=== PATIENT | female | born 1955 | race Caucasian/White ===

== ENCOUNTER 2021-11-23 22:59 | Emergency (ER) | payer MEDICARE ==
[~2021-11-23] VITALS: Ht 172.7 cm; Wt 68.0 kg
[2021-11-23 23:37] LABS: BASOPHILS ABSOLUTE AUTO 0.09 K/mm3 (0.00-0.23); BASOPHILS PERCENT AUTO 1 % (0-2); EOSINOPHILS ABSOLUTE AUTO 0.32 K/mm3 (0.00-0.68); EOSINOPHILS PERCENT AUTO 4 % (0-6); Hemoglobin 13.2 g/dL (11.5-16.0); IMMATURE GRAN ABSOLUTE AUTO 0.02 K/mm3 (0.00-0.10); IMMATURE GRAN PERCENT AUTO 0 % (0-1); LYMPHOCYTES ABSOLUTE AUTO 2.26 K/mm3 (0.84-5.20); LYMPHOCYTES PERCENT AUTO 26 % (21-46); MONOCYTES ABSOLUTE AUTO 1.24 K/mm3 (0.16-1.47); MONOCYTES PERCENT AUTO 14 % (4-13); Mean Corpuscular HGB 28.1 pg (26.0-34.0); Mean Corpuscular Volume 85 fL (80-100); Mean Platelet Volume 10.5 fL (9.1-12.4); NEUTROPHILS ABSOLUTE AUTO 4.86 K/mm3 (1.96-9.15); NEUTROPHILS PERCENT AUTO 55 % (41-73); Platelet Count 188 K/mm3 (150-400); RDW Coefficient Variation 13.3 % (11.7-14.2); Red Blood Cell Count 4.69 M/mm3 (3.80-5.20); White Blood Cell Count 8.79 K/mm3 (4.00-11.30)
[2021-11-23 23:52] LABS: International Normalized Ratio 0.97; Prothrombin Time Results 10.2 Sec (9.7-11.5)
[2021-11-23] MEDS ORDERED: ROSUVASTATIN CA10 MG PO (23:54)
[2021-11-23] MEDS ORDERED: FUROSEMIDE20 MG PO (23:54)
[2021-11-23] MEDS ORDERED: CARVEDILOL12.5 MG PO (23:54)
[2021-11-23] MEDS ORDERED: METHIMAZOLE PO (23:54)
[2021-11-23] MEDS ORDERED: MELO7.5 PO (23:55)
[2021-11-23] MEDS ORDERED: FAMO20 PO (23:55)
[2021-11-23] MEDS ORDERED: LOW DOSE ASPIRI81 M1 PO (23:56)
[2021-11-23 23:57] LABS: Alanine Aminotransfer (ALT/SGP 30 U/L (12-78); Albumin, Blood 3.6 g/dL (3.4-5.0); Albumin/Globulin Ratio 0.9 (0.8-1.8); Alk Phos 92 U/L (50-136); Anion Gap 7 mmol/L (6-16); Aspartate Aminotrans (AST/SGOT 26 U/L (12-37); Bilirubin, Total 0.4 mg/dL (0.1-1.0); Blood Urea Nitrogen 31 mg/dL (8-24); Bun/Creatinine Ratio 20.4 (12.0-20.0); CO2, Blood 27 mmol/L (21-32); Calcium, Blood 8.9 mg/dL (8.5-10.1); Chloride, Blood 109 mmol/L (98-108); Creatinine, Blood 1.52 mg/dL (0.40-1.00); Globulin, Blood 3.8 g/dL (2.2-4.0); Glomerular Filtration Rate 34 (60-); Glucose, Blood 106 mg/dL (70-99); Potassium, Blood 3.6 mmol/L (3.5-5.5); Sodium, Blood 143 mmol/L (136-145); Total Protein, Blood 7.4 g/dL (6.4-8.2); Troponin I <0.015 ng/mL (0.000-0.040)
== END 2021-11-24 02:37 | disposition home or self-care (01) ==
LOC: ER 22:59
PROVIDERS: Emergency Medicine
DX: I73.9 Peripheral vascular disease, unspecified (principal); Z88.8 Allergy status to other drugs, medicaments and biological substances; Z88.1 Allergy status to other antibiotic agents; Z79.899 Other long term (current) drug therapy; Z79.82 Long term (current) use of aspirin
CPT/HCPCS: 70450; 70496; 70498; 80053; 84484; 85025; 85610; 85730; 93005; 93010; 93931; A9270; J2405; Q9967

== ENCOUNTER 2023-04-16 06:09 | Day surgery (SDC) | payer BC ==
[~2023-04-16] VITALS: Ht 172.7 cm; Wt 71.2 kg
[2023-04-16] VITALS (7 sets, daily range): BP systolic 104–140; BP diastolic 60–86
[~2023-04-16 06:09] MED LIST: ALEN70 PO; Amlodipine Bes2.5 MG PO; CARVEDILOL12.5 MG PO; ELIQUIS5 M2 PO; FAMO20 PO; FUROSEMIDE20 MG PO; LOW DOSE ASPIRI81 M1 PO; MELO7.5 PO; METHIMAZOLE PO; OMEP20ER PO; ROSUVASTATIN CA10 MG PO; ZOLP5 PO
--- NOTE | 2023-04-16 10:08 | NUR ---
DISCHARGE REVIEWED WITH BOTH PT AND WITH , BOTH VERBALIZE UNDERSTANDING OF INSTRUCTIONS. ALL AIR HAS BEEN REMOVED FROM TR BAND. SITE WITHOUT BLEEDING OR HEMATOMA. PT AND HAVE NO FURTHER QUESTIONS AT THIS TIME.
--- NOTE | 2023-04-16 10:26 | NUR ---
R WRIST TR BAND REMOVED. PUNCTURE AREA CLEANED /C NS AND CLOTH DOT DRSG PLACED. R WRIST SPLINT REAPPLIED. IV REMOVED. PT AND VERBALIZED UNDERSTANDING OF WRITTEN AND VERBAL D/C INST.
== END 2023-04-16 11:00 | disposition home or self-care (01) ==
LOC: MHTC 06:09
DX: I51.89 Other ill-defined heart diseases (principal); I25.10 Atherosclerotic heart disease of native coronary artery without angina pectoris; I48.0 Paroxysmal atrial fibrillation; I12.9 Hypertensive chronic kidney disease with stage 1 through stage 4 chronic kidney disease, or unspecified chronic kidney disease; N18.9 Chronic kidney disease, unspecified; Z88.1 Allergy status to other antibiotic agents; Z88.8 Allergy status to other drugs, medicaments and biological substances
CPT/HCPCS: 76937; 93312; 93325; 93454; 99152; 99153; A9270; C1769; C1887; C1894; J1644; J2250; J3010; J7030; J7050; Q9967

== ENCOUNTER → 2023-10-21 | Outpatient (CLI) | payer MEDICARE | END | disposition home or self-care (01) | LOC: PLD 08:11 → LAB SHORT 08:11 | DX: L82.1 Other seborrheic keratosis (principal) | CPT/HCPCS: 88305 ==

== ENCOUNTER 2024-03-10 15:04 | Inpatient (IN) | payer OTHER, BC ==
[~2024-03-10] VITALS: Ht 172.7 cm; Wt 72.4 kg
[2024-03-10 15:48] LABS: BASOPHILS ABSOLUTE AUTO 0.08 K/mm3 (0.00-0.23); BASOPHILS PERCENT AUTO 0 % (0-2); EOSINOPHILS ABSOLUTE AUTO 0.49 K/mm3 (0.00-0.68); EOSINOPHILS PERCENT AUTO 2 % (0-6); Hematocrit 34.2 % (33.0-51.0); Hemoglobin 11.7 g/dL (11.5-16.0); IMMATURE GRAN ABSOLUTE AUTO 0.26 K/mm3 (0.00-0.10); IMMATURE GRAN PERCENT AUTO 1 % (0-1); LYMPHOCYTES ABSOLUTE AUTO 0.35 K/mm3 (0.84-5.20); LYMPHOCYTES PERCENT AUTO 2 % (21-46); MONOCYTES PERCENT AUTO 6 % (4-13); Mean Corpuscular HGB 31.1 pg (26.0-34.0); Mean Corpuscular HGB Conc 34.2 g/dL (31.5-36.5); Mean Corpuscular Volume 91 fL (80-100); Mean Platelet Volume 10.5 fL (9.1-12.4); NEUTROPHILS ABSOLUTE AUTO 18.23 K/mm3 (1.96-9.15); NEUTROPHILS PERCENT AUTO 88 % (41-73); Platelet Count 157 K/mm3 (150-400); Red Blood Cell Count 3.76 M/mm3 (3.80-5.20); White Blood Cell Count 20.71 K/mm3 (4.00-11.30)
[2024-03-10] MEDS ORDERED: NS 1,000 ML IV SCH ×3 (16:10→21:00)
[2024-03-10] MEDS ORDERED: Ondansetron HCl 2 MG / ML 2ML Vial IV PRN (19:35)
[2024-03-10] MEDS ORDERED: Acetaminophen 325 MG TABLET PO PRN (19:35)
[2024-03-10] MEDS ORDERED: Zolpidem Tartrate 5 MG Tab PO PRN (19:40)
[2024-03-10] MEDS ORDERED: OxyCODONE HCL 5 MG TAB PO PRN (19:40)
[2024-03-10] MEDS ORDERED: NS 1,000 ML IV ONE (20:00)
[2024-03-10] MEDS ORDERED: MethylPREDNISolone Sod Succ 125 MG Vial IV ONE (20:00)
[2024-03-10] MEDS ORDERED: DiphenhydrAMINE HCl 50 MG/ML 1ML Vial IV ONE (20:00)
[2024-03-10] MEDS ORDERED: Meropenem 500 MG in NS 100 ML IV SCH (21:00)
[2024-03-10] MEDS ORDERED: Loratadine 10 MG Tab PO SCH (21:00)
[2024-03-10] MEDS ORDERED: Famotidine 20 MG Tab PO SCH (21:00)
[2024-03-10] MEDS ORDERED: CefTRIAXone Sodium 1,000 MG in NS 100 ML IV SCH (21:00)
[2024-03-10] MEDS ORDERED: Apixaban 5 MG Tab PO SCH (21:00)
[2024-03-10] MEDS ORDERED: MetroNIDAZOLE 500 MG Tab PO SCH (21:00)
[2024-03-10 23:04] VITALS: BP 105/56
[2024-03-11 04:30] VITALS: BP 109/59
[2024-03-11 04:58] LABS: BASOPHILS ABSOLUTE AUTO 0.06 K/mm3 (0.00-0.23); BASOPHILS PERCENT AUTO 0 % (0-2); EOSINOPHILS ABSOLUTE AUTO 0.04 K/mm3 (0.00-0.68); EOSINOPHILS PERCENT AUTO 0 % (0-6); Hematocrit 31.7 % (33.0-51.0); Hemoglobin 10.5 g/dL (11.5-16.0); IMMATURE GRAN ABSOLUTE AUTO 0.08 K/mm3 (0.00-0.10); IMMATURE GRAN PERCENT AUTO 1 % (0-1); LYMPHOCYTES ABSOLUTE AUTO 0.41 K/mm3 (0.84-5.20); LYMPHOCYTES PERCENT AUTO 3 % (21-46); MONOCYTES ABSOLUTE AUTO 0.48 K/mm3 (0.16-1.47); MONOCYTES PERCENT AUTO 3 % (4-13); Mean Corpuscular HGB 29.9 pg (26.0-34.0); Mean Corpuscular HGB Conc 33.1 g/dL (31.5-36.5); Mean Corpuscular Volume 90 fL (80-100); Mean Platelet Volume 10.1 fL (9.1-12.4); NEUTROPHILS ABSOLUTE AUTO 14.67 K/mm3 (1.96-9.15); NEUTROPHILS PERCENT AUTO 93 % (41-73); Platelet Count 146 K/mm3 (150-400); RDW Coefficient Variation 14.2 % (11.7-14.2); RDW Standard Deviation 47.3 fL (35.1-46.3); Red Blood Cell Count 3.51 M/mm3 (3.80-5.20); White Blood Cell Count 15.74 K/mm3 (4.00-11.30)
[2024-03-11 05:02] LABS: Source, Urine Clean Catch
[2024-03-11 05:12] LABS: Appearance, Urine Hazy (Clear); Bilirubin, Urine Neg (Neg); Blood, Urine 2+ (Neg); Color, Urine Yellow (P-Yellow); Glucose Qualitative, Urine Neg (Neg); Ketones, Urine Neg (Neg); Leukocyte Esterase, Urine 3+ (Neg); Nitrite, Urine Pos (Neg); Protein, Urine 2+ (Neg); Urobilinogen, Urine NORM (Normal)
[2024-03-11 05:18] LABS: Bun/Creatinine Ratio 22.1 (12.0-20.0); Calcium, Blood 7.6 mg/dL (8.5-10.1); Creatinine, Blood 1.45 mg/dL (0.40-1.00); Potassium, Blood 4.3 mmol/L (3.5-5.5)
[2024-03-11 05:29] LABS: White Blood Cells, Urine 25-50 /hpf (0-5)
[2024-03-11 05:30] LABS: Bacteria Mod /hpf; Squamous Epithelial Cells Few /hpf (Few)
[2024-03-11] MEDS ORDERED: Omeprazole 20 MG CapCR PO SCH (06:00)
--- NOTE | 2024-03-11 06:06 | NUR ---
2109 Pt arrived onto unit via rashmi with RN in attendance. Ambulated from hallway to bed in room 5, [facility]. is here with pt, staying long enough for her to get settled for the night. Full assessment obtained, wounds photographed, and placed in chart. Shift plan of care reviewed with pt and , all questions answered. Oriented to room and unit per unit standards. Pt reports slept well this shift and "feels so much better". Reddened/petechial rash lessened and face visibly less puffy. Pt has repeatedly denied pain this shift, able to ambulate to BR to void. Please see full asssessment for additional details. No further complaints or concerns at this time, will continue to monitor.
[2024-03-11 08:41] VITALS: BP 110/54
[2024-03-11] MEDS ORDERED: PredniSONE 20 MG Tab PO SCH (09:00)
[2024-03-11 15:34] VITALS: BP 113/70
--- NOTE | 2024-03-11 16:11 | NUR ---
RASH SEEMS TO HAVE IMPROVED T/O THIS SHIFT, THERE IS LESS EDEMA, LESS ERYTHEMA NOTED TO UPPER ARMS BILATERALLY. SKIN IS DRY AND INTACT. PT IS ALERT AND ORIENTED X4. SHE IS INDEPENDANT IN THE ROOM. NO RESPIRATORY DISTRESS, EVEN NONLABORED RESPIRATIONS NOTED. DENIES ANY CHEST PAIN. SHE IS IN A PACED RHYTHM IN THE 70s PER TELE. VSS. SHE HAS GOOD APPETITE. SHE IS LAUGHING AND JOKING WITH STAFF. FAMILY HAS BEEN IN TO VISIT AND WAS ALSO UPDATED BY THIS RN AND DR DOMINGUEZ, DR DOMINGUEZ HAS BEEN IN A FEW TIMES TO REASSESS RASH.
[2024-03-11 19:17] VITALS: BP 130/74
[2024-03-11] MEDS ORDERED: Carvedilol 6.25 MG Tab PO SCH (21:00)
[2024-03-11 23:23] VITALS: BP 141/88
[2024-03-12 03:19] VITALS: BP 116/72
[2024-03-12 03:43] LABS: BASOPHILS ABSOLUTE AUTO 0.05 K/mm3 (0.00-0.23); BASOPHILS PERCENT AUTO 0 % (0-2); EOSINOPHILS ABSOLUTE AUTO 0.12 K/mm3 (0.00-0.68); EOSINOPHILS PERCENT AUTO 1 % (0-6); Hematocrit 29.3 % (33.0-51.0); Hemoglobin 9.6 g/dL (11.5-16.0); IMMATURE GRAN ABSOLUTE AUTO 0.16 K/mm3 (0.00-0.10); IMMATURE GRAN PERCENT AUTO 1 % (0-1); LYMPHOCYTES PERCENT AUTO 6 % (21-46); MONOCYTES ABSOLUTE AUTO 1.46 K/mm3 (0.16-1.47); MONOCYTES PERCENT AUTO 11 % (4-13); Mean Corpuscular HGB Conc 32.8 g/dL (31.5-36.5); Mean Corpuscular Volume 92 fL (80-100); NEUTROPHILS ABSOLUTE AUTO 11.33 K/mm3 (1.96-9.15); NEUTROPHILS PERCENT AUTO 81 % (41-73); Platelet Count 127 K/mm3 (150-400); RDW Coefficient Variation 14.5 % (11.7-14.2); RDW Standard Deviation 49.1 fL (35.1-46.3); White Blood Cell Count 13.92 K/mm3 (4.00-11.30)
[2024-03-12 04:03] LABS: Albumin, Blood 2.4 g/dL (3.4-5.0); Anion Gap 9 mmol/L (3-11); Blood Urea Nitrogen 32 mg/dL (8-24); CO2, Blood 20 mmol/L (21-32); Calcium, Blood 7.3 mg/dL (8.5-10.1); Chloride, Blood 116 mmol/L (98-108); Creatinine, Blood 1.23 mg/dL (0.40-1.00); Glomerular Filtration Rate 47 (60-); Glucose, Blood 128 mg/dL (70-99); Magnesium, Blood 1.7 mg/dL (1.6-2.4); Phosphorus, Blood 2.4 mg/dL (2.5-4.9); Potassium, Blood 4.2 mmol/L (3.5-5.5); Sodium, Blood 141 mmol/L (136-145)
--- NOTE | 2024-03-12 05:32 | NUR ---
1915 Assumed care of pt, bedside report completed. Shift plan of care reviewed with pt and , all questions answered. Pt appears to have slept well this shift, VSS and repeatedly denies pain. Pt has reported feeling better and pleased with the progress of her diminishing rash especially the decreased presence in face and decreased pain/prickling feeling over body from rash. Please see full assessment for additional details. No further complaints or concerns at this time, will continue to moniotor.
[2024-03-12 07:10] VITALS: BP 139/81
[2024-03-12] MEDS ORDERED: Potassium Phos/Sodium Phos 250 MG PACK PO ONE (07:25)
[2024-03-12] MEDS ORDERED: Magnesium Oxide 400 MG Tab PO ONE (08:00)
[2024-03-12] MEDS ORDERED: Trimethoprim/Sulfamethoxazole DS Tab PO SCH (08:00)
[2024-03-12] MEDS ORDERED: MetroNIDAZOLE 500 MG Tab PO SCH (08:00)
[2024-03-12] MEDS ORDERED: Aspirin 81 MG TabEC PO SCH (09:00)
[2024-03-12] MEDS ORDERED: Furosemide 20 MG Tab PO SCH (09:00)
[2024-03-12] MEDS ORDERED: ELIQUIS5 M2 PO (12:47)
[2024-03-12] MEDS ORDERED: FAMO20 PO (12:48)
[2024-03-12] MEDS ORDERED: LORA10ER PO (12:48)
[2024-03-12] MEDS ORDERED: METR500 PO (12:49)
[2024-03-12] MEDS ORDERED: PRED20 PO (12:50)
[2024-03-12] MEDS ORDERED: SULTRIDS PO (12:51)
--- NOTE | 2024-03-12 13:10 | NUR ---
DISCHARGE DISCHARGE INSTRUCTIONS PROVIDED TO THE PATIENT. PATIENT EDUCATED ON MEDICATIONS. ALL QUESTIONS ANSWERED. PT TAKEN OUT VIA WC
== END 2024-03-12 13:12 | disposition home or self-care (01) | DRG 872 ==
LOC: ER 15:04 → PCU 19:34
PROVIDERS: Family Medicine; Nurse Practitioner Acute Care; Student in an Organized Health Care Education/Training Program; ADMIT Internal Medicine
DX: A41.9 Sepsis, unspecified organism (principal); C92.00 Acute myeloblastic leukemia, not having achieved remission; Z94.81 Bone marrow transplant status; E87.20 Acidosis, unspecified; N17.9 Acute kidney failure, unspecified; I13.0 Hypertensive heart and chronic kidney disease with heart failure and stage 1 through stage 4 chronic kidney disease, or unspecified chronic kidney disease; I50.32 Chronic diastolic (congestive) heart failure; R65.20 Severe sepsis without septic shock; S21.051A Open bite of right breast, initial encounter; S01.85XA Open bite of other part of head, initial encounter; N61.0 Mastitis without abscess; I25.10 Atherosclerotic heart disease of native coronary artery without angina pectoris; I48.0 Paroxysmal atrial fibrillation; N18.30 Chronic kidney disease, stage 3 unspecified; K21.9 Gastro-esophageal reflux disease without esophagitis; M81.0 Age-related osteoporosis without current pathological fracture; I95.9 Hypotension, unspecified; L50.9 Urticaria, unspecified; T36.8X5A Adverse effect of other systemic antibiotics, initial encounter; T36.0X5A Adverse effect of penicillins, initial encounter; T36.1X5A Adverse effect of cephalosporins and other beta-lactam antibiotics, initial encounter; Z88.8 Allergy status to other drugs, medicaments and biological substances; Z79.1 Long term (current) use of non-steroidal anti-inflammatories (NSAID); Z79.82 Long term (current) use of aspirin; Z79.01 Long term (current) use of anticoagulants; Z79.899 Other long term (current) drug therapy; W54.0XXA Bitten by dog, initial encounter; R50.9 Fever, unspecified
CPT/HCPCS: 36415; 80048; 80053; 80069; 81001; 83605; 83735; 85025; 87040; 96360; 99285-25; A9270; J1200; J2185; J2930; J7030; J7512